=== PATIENT | male | born 1975 | race Caucasian/White ===

== ENCOUNTER 2016-09-01 08:47 | Emergency (ER) | payer MEDICAID ==
[2013-12-08 15:12] VITALS: BMI 33.4
[~2016-09-01 08:47] MED LIST: ATIVAN1 MG PO; ATIVAN2 MG PO; CIPRO500 MG PO; COMBIVENT RESPIM4 GM INH; CYCLOBENZAPRINE5 MG PO; FLAGYL250 MG PO; HYDROCHLOROTH12.5 M1 PO; IPRAT-ALBUT 0.5-3 ML NEB; LEVAQUIN500 MG PO; LISINOPRIL10 MG PO; NORCO 10/325 TA1 TA1 PO; NORCO 5/325 TAB1 TA1 PO; PAXIL20 MG PO; PERCOCET 10/3251 TA1 PO; PLAVIX75 MG PO; PRILOSEC20 MG PO; SINGULAIR10 MG PO; SYMBICORT 16010.2 GM; VALIUM10 MG PO; VENTOLIN HFA18 GM IH; VENTOLIN HFA18 GM INH; VICODIN 5/500 T1 TAB PO
== END 2016-09-01 11:22 | disposition home or self-care (01) ==
LOC: D.ER 08:47
DX: J06.9 Acute upper respiratory infection, unspecified (principal); H69.93 Unspecified Eustachian tube disorder, bilateral; J30.9 Allergic rhinitis, unspecified; I50.9 Heart failure, unspecified; I10 Essential (primary) hypertension; F41.9 Anxiety disorder, unspecified; F17.200 Nicotine dependence, unspecified, uncomplicated

== ENCOUNTER 2016-11-09 18:27 | Emergency (ER) | payer MEDICAID ==
[2013-12-08 15:12] VITALS: BMI 33.4
== END 2016-11-09 19:00 | disposition left against medical advice (07) ==
LOC: D.ER 18:27
DX: R60.9 Edema, unspecified (principal); H92.02 Otalgia, left ear

== ENCOUNTER 2016-11-09 20:12 | Emergency (ER) | payer MEDICAID ==
[2013-12-08 15:12] VITALS: BMI 33.4
== END 2016-11-09 20:46 | disposition home or self-care (01) ==
LOC: D.ER 20:12
DX: H66.92 Otitis media, unspecified, left ear (principal); I50.9 Heart failure, unspecified; F17.200 Nicotine dependence, unspecified, uncomplicated; R51 Headache

== ENCOUNTER 2016-11-12 17:27 | Emergency (ER) | payer MEDICAID ==
[2013-12-08 15:12] VITALS: BMI 33.4
[2016-11-12 18:46] LABS: BASOPHILS 0.6 % (0-2); EOSINOPHILS 2.2 % (0-7); HEMATOCRIT 43.5 % (42.0-54.0); IMMATURE GRANULOCYTES 3.4 % (0-5); LYMPHOCYTES 34.7 % (15-50); MCH 31.9 pg (26.0-34.0); MCHC 34.5 g/dL (31.0-37.0); MCV 92.6 fL (80.0-100.0); MONOCYTES 7.4 % (2-11); NEUTROPHILS 51.7 % (40-80); PLATELET COUNT 298 10x3/uL (130-400); RDW 13.1 % (11.5-14.5); WBC 10.9 10x3/uL (4.8-10.8)
[2016-11-12 18:57] LABS: CALC OSMOLALITY 279 mosm/kg (275-300); CALCIUM 8.9 mg/dL (8.5-10.1); CARBON DIOXIDE 26.7 mmol/L (21.0-32.0); CHLORIDE - SERUM 104 mmol/L (98-107); CREATININE - SERUM 0.9 mg/dL (0.6-1.3); POTASSIUM - SERUM 3.7 mmol/L (3.5-5.1); SODIUM 139 mmol/L (136-145); UREA NITROGEN 12 mg/dL (7-18); eGFR NON AFRICAN AMERICAN > 90 mL/min (90-120)
[2016-11-12 18:59] LABS: GLUCOSE 131 mg/dL (74-106)
== END 2016-11-12 19:40 | disposition home or self-care (01) ==
LOC: D.ER 17:27
PROVIDERS: Nurse Practitioner Acute Care
DX: H66.92 Otitis media, unspecified, left ear (principal); I50.9 Heart failure, unspecified; I10 Essential (primary) hypertension; F17.200 Nicotine dependence, unspecified, uncomplicated

== ENCOUNTER 2016-11-29 13:01 | Emergency (ER) | payer MEDICAID ==
[2013-12-08 15:12] VITALS: BMI 33.4
[2016-11-29 14:03] LABS: BASOPHILS 0.4 % (0-2); EOSINOPHILS 3.9 % (0-7); HEMATOCRIT 42.7 % (42.0-54.0); HEMOGLOBIN 15.1 g/dL (13.5-17.5); IMMATURE GRANULOCYTES 0.7 % (0-5); MCH 32.9 pg (26.0-34.0); MCHC 35.4 g/dL (31.0-37.0); MEAN PLATELET VOLUME 10.1 fL (7.4-10.4); MONOCYTES 7.8 % (2-11); NEUTROPHILS 51.2 % (40-80); PLATELET COUNT 302 10x3/uL (130-400); RBC 4.59 10x6/uL (4.20-6.10); RDW 12.9 % (11.5-14.5)
[2016-11-29 14:10] LABS: ALBUMIN 4.4 g/dL (3.4-5.0); ANION GAP 13.6 mmol/L (8-16); BILIRUBIN - TOTAL 1.97 mg/dL (0.2-1.3); CALCIUM 9.7 mg/dL (8.5-10.1); CARBON DIOXIDE 29.3 mmol/L (21.0-32.0); CREATININE - SERUM 1.4 mg/dL (0.6-1.3); POTASSIUM - SERUM 3.9 mmol/L (3.5-5.1); PROTEIN - SERUM 8.2 g/dL (6.4-8.2)
[2016-11-29 14:39] LABS: APPEARANCE CLEAR (CLEAR); BILIRUBIN NEGATIVE (NEGATIVE); COLOR DK YELLOW (YELLOW); GLUCOSE NEGATIVE (NEGATIVE); KETONE NEGATIVE (NEGATIVE); LEUKOCYTE ESTERASE NEGATIVE (NEGATIVE); NITRITE NEGATIVE (NEGATIVE); PROTEIN NEGATIVE (NEGATIVE); SPECIFIC GRAVITY 1.025 (1.005-1.020)
[2016-11-29 15:57] LABS: AMYLASE - SERUM 89 U/L (25-115); LIPASE 246 U/L (73-393)
[2016-11-29 16:00] LABS: UDS - AMPHET NEGATIVE QUAL (NEGATIVE); UDS - BARB NEGATIVE QUAL (NEGATIVE); UDS - BENZO NEGATIVE QUAL (NEGATIVE); UDS - COCAINE NEGATIVE QUAL (NEGATIVE); UDS - METH NEGATIVE QUAL (NEGATIVE); UDS - OPIATE NEGATIVE QUAL (NEGATIVE); UDS - PCP NEGATIVE QUAL (NEGATIVE); UDS - THC POSITIVE QUAL (NEGATIVE)
[2016-11-29 16:56] LABS: CKMB 0.8 U/L (0.0-3.6); CREATINE KINASE 95 UL (21-232)
[2016-11-29 16:57] LABS: TROPONIN-I < 0.017 ng/mL (0.000-0.060)
== END 2016-11-29 18:33 | disposition home or self-care (01) ==
LOC: D.ER 13:01
PROVIDERS: Emergency Medicine; Nurse Practitioner Family
DX: R10.9 Unspecified abdominal pain (principal); K21.9 Gastro-esophageal reflux disease without esophagitis; R19.7 Diarrhea, unspecified; Z87.19 Personal history of other diseases of the digestive system; I50.9 Heart failure, unspecified; I10 Essential (primary) hypertension

== ENCOUNTER 2017-03-31 03:13 | Emergency (ER) | payer MEDICAID ==
[2013-12-08 15:12] VITALS: BMI 33.4
[2017-03-31 04:21] LABS: BASOPHILS 0.1 % (0-2); EOSINOPHILS 1.5 % (0-7); HEMATOCRIT 41.1 % (42.0-54.0); HEMOGLOBIN 14.6 g/dL (13.5-17.5); IMMATURE GRANULOCYTES 0.5 % (0-5); MCH 32.8 pg (26.0-34.0); MCHC 35.5 g/dL (31.0-37.0); MCV 92.4 fL (80.0-100.0); MEAN PLATELET VOLUME 10.4 fL (7.4-10.4); MONOCYTES 11.1 % (2-11); NEUTROPHILS 72.8 % (40-80); PLATELET COUNT 232 10x3/uL (130-400); RBC 4.45 10x6/uL (4.20-6.10); RDW 12.8 % (11.5-14.5); WBC 9.3 10x3/uL (4.8-10.8)
[2017-03-31 04:29] LABS: ALKALINE PHOSPHATASE 54 U/L (46-116); BILIRUBIN - TOTAL 0.91 mg/dL (0.2-1.3); CALC OSMOLALITY 270 mosm/kg (275-300); CALCIUM 8.5 mg/dL (8.5-10.1); CARBON DIOXIDE 20.1 mmol/L (21.0-32.0); CHLORIDE - SERUM 99 mmol/L (98-107); GLUCOSE 122 mg/dL (74-106); POTASSIUM - SERUM 3.9 mmol/L (3.5-5.1); SODIUM 134 mmol/L (136-145); UREA NITROGEN 17 mg/dL (7-18); eGFR NON AFRICAN AMERICAN 87 mL/min (90-120)
[2017-03-31 04:33] LABS: ALT (SGPT) 39 U/L (10-68); PROTEIN - SERUM 7.4 g/dL (6.4-8.2)
[2017-03-31 05:12] LABS: APPEARANCE CLEAR (CLEAR); COLOR YELLOW (YELLOW); SPECIFIC GRAVITY 1.015 (1.005-1.020)
[2017-03-31 05:13] LABS: BILIRUBIN NEGATIVE (NEGATIVE); GLUCOSE NEGATIVE (NEGATIVE); KETONE NEGATIVE (NEGATIVE); NITRITE NEGATIVE (NEGATIVE); PROTEIN NEGATIVE (NEGATIVE); UROBILINOGEN NORMAL (NORMAL)
[2017-03-31 05:19] LABS: UDS - AMPHET NEGATIVE QUAL (NEGATIVE); UDS - BARB NEGATIVE QUAL (NEGATIVE); UDS - BENZO NEGATIVE QUAL (NEGATIVE); UDS - COCAINE NEGATIVE QUAL (NEGATIVE); UDS - OPIATE POSITIVE QUAL (NEGATIVE); UDS - PCP NEGATIVE QUAL (NEGATIVE); UDS - THC POSITIVE QUAL (NEGATIVE)
== END 2017-03-31 05:54 | disposition home or self-care (01) ==
LOC: D.ER 03:13
PROVIDERS: Family Medicine
DX: J11.1 Influenza due to unidentified influenza virus with other respiratory manifestations (principal); I50.9 Heart failure, unspecified; I10 Essential (primary) hypertension

== ENCOUNTER 2017-04-18 06:53 | Emergency (ER) | payer MEDICAID ==
[2013-12-08 15:12] VITALS: BMI 33.4
== END 2017-04-18 07:38 | disposition home or self-care (01) ==
LOC: D.ER 06:53
DX: K64.8 Other hemorrhoids (principal); I50.9 Heart failure, unspecified; I10 Essential (primary) hypertension; K21.9 Gastro-esophageal reflux disease without esophagitis; F17.200 Nicotine dependence, unspecified, uncomplicated

== ENCOUNTER 2017-04-25 08:45 | Emergency (ER) | payer MEDICAID ==
[2013-12-08 15:12] VITALS: BMI 33.4
== END 2017-04-25 10:01 | disposition home or self-care (01) ==
LOC: D.ER 08:45
DX: J20.9 Acute bronchitis, unspecified (principal); J02.0 Streptococcal pharyngitis; I50.9 Heart failure, unspecified; I10 Essential (primary) hypertension

== ENCOUNTER 2017-04-28 13:52 | Emergency (ER) | payer MEDICAID ==
[2013-12-08 15:12] VITALS: BMI 33.4
== END 2017-04-28 16:05 | disposition home or self-care (01) ==
LOC: D.ER 13:52
DX: J02.9 Acute pharyngitis, unspecified (principal); J11.1 Influenza due to unidentified influenza virus with other respiratory manifestations; J44.1 Chronic obstructive pulmonary disease with (acute) exacerbation; I50.9 Heart failure, unspecified; K21.9 Gastro-esophageal reflux disease without esophagitis

== ENCOUNTER 2017-05-18 19:39 | Emergency (ER) | payer MEDICAID ==
[2013-12-08 15:12] VITALS: BMI 33.4
== END 2017-05-18 21:06 | disposition home or self-care (01) ==
LOC: D.ER 19:39
DX: T25.122A Burn of first degree of left foot, initial encounter (principal); T31.0 Burns involving less than 10% of body surface; X10.2XXA Contact with fats and cooking oils, initial encounter; Y93.G3 Activity, cooking and baking; Y92.010 Kitchen of single-family (private) house as the place of occurrence of the external cause; J44.9 Chronic obstructive pulmonary disease, unspecified; I50.9 Heart failure, unspecified; K21.9 Gastro-esophageal reflux disease without esophagitis

== ENCOUNTER 2017-06-22 10:02 | Emergency (ER) | payer MEDICAID ==
[2013-12-08 15:12] VITALS: BMI 33.4
[2017-06-22 11:09] LABS: BASOPHILS 0.3 % (0-2); EOSINOPHILS 3.1 % (0-7); HEMATOCRIT 45.6 % (42.0-54.0); HEMOGLOBIN 16.1 g/dL (13.5-17.5); IMMATURE GRANULOCYTES 0.6 % (0-5); LYMPHOCYTES 33.4 % (15-50); MCH 33.3 pg (26.0-34.0); MCHC 35.3 g/dL (31.0-37.0); MCV 94.4 fL (80.0-100.0); MONOCYTES 9.3 % (2-11); NEUTROPHILS 53.3 % (40-80); RBC 4.83 10x6/uL (4.20-6.10); RDW 13.5 % (11.5-14.5)
[2017-06-22 11:13] LABS: PLATELET COUNT 291 10x3/uL (130-400)
[2017-06-22 11:22] LABS: ALBUMIN 4.2 g/dL (3.4-5.0); ALKALINE PHOSPHATASE 52 U/L (46-116); ALT (SGPT) 48 U/L (10-68); BILIRUBIN - TOTAL 0.94 mg/dL (0.2-1.3); CALC OSMOLALITY 273 mosm/kg (275-300); CALCIUM 9.3 mg/dL (8.5-10.1); CARBON DIOXIDE 24.6 mmol/L (21.0-32.0); CHLORIDE - SERUM 102 mmol/L (98-107); CREATININE - SERUM 0.8 mg/dL (0.6-1.3); GLUCOSE 97 mg/dL (74-106); PROTEIN - SERUM 8.1 g/dL (6.4-8.2); SODIUM 137 mmol/L (136-145); UREA NITROGEN 12 mg/dL (7-18); eGFR NON AFRICAN AMERICAN > 90 mL/min (90-120)
[2017-06-22 11:30] LABS: CREATINE KINASE 104 UL (21-232); PRO BNP 14 pg/mL (0-125)
[2017-06-22 11:31] LABS: TROPONIN-I < 0.017 ng/mL (0.000-0.060)
[2017-06-22 11:33] LABS: INR 1.01 (0.85-1.17); PROTIME 12.9 SECONDS (11.6-15.0)
[2017-06-22 11:35] LABS: D-DIMER-QUANTITATIVE < 0.27 ug/mLFEU (0.20-0.54)
[2017-06-22 12:01] LABS: UDS - AMPHET NEGATIVE QUAL (NEGATIVE); UDS - BARB NEGATIVE QUAL (NEGATIVE); UDS - BENZO NEGATIVE QUAL (NEGATIVE); UDS - COCAINE NEGATIVE QUAL (NEGATIVE); UDS - OPIATE NEGATIVE QUAL (NEGATIVE); UDS - PCP NEGATIVE QUAL (NEGATIVE); UDS - THC POSITIVE QUAL (NEGATIVE)
[2017-06-22 12:19] LABS: AMORPHOUS SEDIMENT <1+ /lpf (NONE SEEN); APPEARANCE HAZY (CLEAR); BACTERIA FEW /hpf (NONE SEEN); BILIRUBIN NEGATIVE (NEGATIVE); COLOR YELLOW (YELLOW); EPITHELIAL CELLS 0-5 /hpf (0-5); GLUCOSE NEGATIVE (NEGATIVE); KETONE NEGATIVE (NEGATIVE); MUCUS <1+ /lpf (NONE SEEN); NITRITE NEGATIVE (NEGATIVE); PROTEIN NEGATIVE (NEGATIVE); SPECIFIC GRAVITY 1.015 (1.005-1.020); UROBILINOGEN NORMAL (NORMAL); WHITE CELLS - URINE 0-5 /hpf (0-5)
== END 2017-06-22 13:15 | disposition home or self-care (01) ==
LOC: D.ER 10:02
PROVIDERS: Nurse Practitioner Family
DX: J45.901 Unspecified asthma with (acute) exacerbation (principal); I50.9 Heart failure, unspecified; K21.9 Gastro-esophageal reflux disease without esophagitis

== ENCOUNTER 2017-07-29 11:00 | Emergency (ER) | payer MEDICAID ==
[2013-12-08 15:12] VITALS: BMI 33.4
== END 2017-07-29 13:08 | disposition home or self-care (01) ==
LOC: D.ER 11:00
DX: S83.91XA Sprain of unspecified site of right knee, initial encounter (principal); W19.XXXA Unspecified fall, initial encounter; Y93.89 Activity, other specified; Y92.019 Unspecified place in single-family (private) house as the place of occurrence of the external cause; J45.909 Unspecified asthma, uncomplicated; I50.9 Heart failure, unspecified; J44.9 Chronic obstructive pulmonary disease, unspecified

== ENCOUNTER 2017-11-08 07:52 | Emergency (ER) | payer MEDICAID ==
[~2017-11-08] VITALS: Ht 188 cm; Wt 109.1 kg
[2017-11-08 08:02] VITALS: Ht 188 cm; Wt 109.1 kg
[2017-11-08] MEDS ORDERED: PROAIR HFA8.5 GM INH (08:26)
[2017-11-08] MEDS ORDERED: AUGMENTIN 875-11 TAB PO (08:26)
[2017-11-08] MEDS ORDERED: FLUTICASONE PRO16 GM NASAL (08:26)
[2017-11-08 08:54] VITALS: BP 134/79
== END 2017-11-08 08:54 | disposition home or self-care (01) ==
LOC: D.ER 07:52
DX: J01.90 Acute sinusitis, unspecified (principal); J45.909 Unspecified asthma, uncomplicated; F17.200 Nicotine dependence, unspecified, uncomplicated; I10 Essential (primary) hypertension

== ENCOUNTER 2017-12-07 16:36 | Emergency (ER) | payer MEDICAID ==
[~2017-12-07] VITALS: Ht 188 cm; Wt 113.2 kg
[~2017-12-07 16:36] MED LIST changes: +AUGMENTIN 875-11 TAB PO; +FLUTICASONE PRO16 GM NASAL; +PROAIR HFA8.5 GM INH
[2017-12-07 16:43] VITALS: Ht 188 cm; Wt 113.2 kg
[2017-12-07] MEDS ORDERED: CYCLOBENZAPRINE5 MG PO (20:24)
[2017-12-07] MEDS ORDERED: NORCO 7.5/325 T1 TA1 PO (20:24)
[2017-12-07] MEDS ORDERED: NAPROSYN500 MG PO (20:24)
[2017-12-07 20:33] VITALS: BP 149/84
== END 2017-12-07 20:33 | disposition home or self-care (01) ==
LOC: D.ER 16:36
DX: S41.112A Laceration without foreign body of left upper arm, initial encounter (principal); V86.59XA Driver of other special all-terrain or other off-road motor vehicle injured in nontraffic accident, initial encounter; Y93.89 Activity, other specified; Y92.89 Other specified places as the place of occurrence of the external cause; M54.5 Low back pain; M25.512 Pain in left shoulder; I10 Essential (primary) hypertension; F17.200 Nicotine dependence, unspecified, uncomplicated

== ENCOUNTER 2018-02-27 11:42 | Emergency (ER) | payer MEDICAID ==
[~2018-02-27] VITALS: Ht 188 cm; Wt 113.6 kg
[~2018-02-27 11:42] MED LIST changes: +NAPROSYN500 MG PO; +NORCO 7.5/325 T1 TA1 PO
[2018-02-27 11:56] VITALS: Ht 188 cm; Wt 113.6 kg
[2018-02-27 12:29] LABS: APPEARANCE CLEAR (CLEAR); BILIRUBIN NEGATIVE (NEGATIVE); COLOR YELLOW (YELLOW); GLUCOSE NEGATIVE (NEGATIVE); KETONE NEGATIVE (NEGATIVE); NITRITE NEGATIVE (NEGATIVE); PROTEIN NEGATIVE (NEGATIVE); UROBILINOGEN NORMAL (NORMAL)
[2018-02-27 12:30] LABS: BACTERIA FEW /hpf (NONE SEEN); EPITHELIAL CELLS RARE /hpf (0-5); RED CELLS - URINE RARE /hpf (0-5); UDS - AMPHET NEGATIVE QUAL (NEGATIVE); UDS - BARB NEGATIVE QUAL (NEGATIVE); UDS - BENZO NEGATIVE QUAL (NEGATIVE); UDS - COCAINE NEGATIVE QUAL (NEGATIVE); UDS - OPIATE NEGATIVE QUAL (NEGATIVE); UDS - PCP NEGATIVE QUAL (NEGATIVE); UDS - THC POSITIVE QUAL (NEGATIVE)
[2018-02-27 13:13] LABS: BASOPHILS 0.3 % (0-2); EOSINOPHILS 2.3 % (0-7); HEMATOCRIT 40.4 % (42.0-54.0); HEMOGLOBIN 13.9 g/dL (13.5-17.5); IMMATURE GRANULOCYTES 0.9 % (0-5); LYMPHOCYTES 31.9 % (15-50); MCH 32.4 pg (26.0-34.0); MCHC 34.4 g/dL (31.0-37.0); MCV 94.2 fL (80.0-100.0); MEAN PLATELET VOLUME 9.7 fL (7.4-10.4); MONOCYTES 7.5 % (2-11); NEUTROPHILS 57.1 % (40-80); PLATELET COUNT 310 10x3/uL (130-400); RBC 4.29 10x6/uL (4.20-6.10); RDW 12.6 % (11.5-14.5); WBC 6.9 10x3/uL (4.8-10.8)
[2018-02-27 13:30] LABS: ALBUMIN 3.5 g/dL (3.4-5.0); ALKALINE PHOSPHATASE 54 U/L (46-116); ALT (SGPT) 49 U/L (10-68); CALC OSMOLALITY 276 mosm/kg (275-300); CALCIUM 8.6 mg/dL (8.5-10.1); CARBON DIOXIDE 23.9 mmol/L (21.0-32.0); CHLORIDE - SERUM 105 mmol/L (98-107); CREATININE - SERUM 0.9 mg/dL (0.6-1.3); GLUCOSE 109 mg/dL (74-106); MAGNESIUM - SERUM 2.1 mg/dL (1.8-2.4); POTASSIUM - SERUM 3.9 mmol/L (3.5-5.1); PROTEIN - SERUM 7.3 g/dL (6.4-8.2); SODIUM 139 mmol/L (136-145); UREA NITROGEN 8 mg/dL (7-18); eGFR NON AFRICAN AMERICAN > 90 mL/min (90-120)
[2018-02-27 21:08] VITALS: BP 141/89
== END 2018-02-27 21:09 ==
LOC: D.ER 11:42
PROVIDERS: Family Medicine
DX: T14.91XA Suicide attempt, initial encounter (principal); X78.9XXA Intentional self-harm by unspecified sharp object, initial encounter; Y93.89 Activity, other specified; Y92.019 Unspecified place in single-family (private) house as the place of occurrence of the external cause; I10 Essential (primary) hypertension; F17.200 Nicotine dependence, unspecified, uncomplicated

== ENCOUNTER 2018-03-14 04:25 | Emergency (ER) | payer MEDICAID ==
[~2018-03-14] VITALS: Ht 188 cm; Wt 112.7 kg
[2018-03-14 04:26] VITALS: Ht 188 cm; Wt 112.7 kg
[2018-03-14] MEDS ORDERED: IBUPROFEN800 MG PO (05:46)
[2018-03-14] MEDS ORDERED: CYCLOBENZAPRINE10 MG PO (05:46)
[2018-03-14] MEDS ORDERED: ACETAMINOPHEN500 M1 PO (05:46)
[2018-03-14 05:59] VITALS: BP 134/82
== END 2018-03-14 06:00 | disposition home or self-care (01) ==
LOC: D.ER 04:25
DX: S40.012A Contusion of left shoulder, initial encounter (principal); W20.8XXA Other cause of strike by thrown, projected or falling object, initial encounter; Y93.89 Activity, other specified; Y92.019 Unspecified place in single-family (private) house as the place of occurrence of the external cause; I10 Essential (primary) hypertension; F17.200 Nicotine dependence, unspecified, uncomplicated

== ENCOUNTER 2018-04-28 09:55 | Emergency (ER) | payer MEDICAID ==
[~2018-04-28] VITALS: Ht 188 cm; Wt 111.8 kg
[~2018-04-28 09:55] MED LIST changes: +ACETAMINOPHEN500 M1 PO; +CYCLOBENZAPRINE10 MG PO; +IBUPROFEN800 MG PO
[2018-04-28 09:58] VITALS: Ht 188 cm; Wt 111.8 kg
[2018-04-28 10:27] LABS: BASOPHILS 0.5 % (0-2); EOSINOPHILS 2.2 % (0-7); HEMATOCRIT 44.3 % (42.0-54.0); HEMOGLOBIN 15.7 g/dL (13.5-17.5); IMMATURE GRANULOCYTES 1.2 % (0-5); LYMPHOCYTES 38.4 % (15-50); MCH 32.4 pg (26.0-34.0); MCHC 35.4 g/dL (31.0-37.0); MCV 91.3 fL (80.0-100.0); MEAN PLATELET VOLUME 9.9 fL (7.4-10.4); MONOCYTES 7.8 % (2-11); NEUTROPHILS 49.9 % (40-80); PLATELET COUNT 296 10x3/uL (130-400); RBC 4.85 10x6/uL (4.20-6.10); RDW 13.2 % (11.5-14.5); WBC 9.7 10x3/uL (4.8-10.8)
[2018-04-28 10:40] LABS: ALKALINE PHOSPHATASE 66 U/L (46-116); ALT (SGPT) 50 U/L (10-68); BILIRUBIN - TOTAL 0.63 mg/dL (0.2-1.3); CALC OSMOLALITY 270 mosm/kg (275-300); CALCIUM 9.1 mg/dL (8.5-10.1); CARBON DIOXIDE 23.7 mmol/L (21.0-32.0); CHLORIDE - SERUM 101 mmol/L (98-107); CREATININE - SERUM 0.8 mg/dL (0.6-1.3); GLUCOSE 90 mg/dL (74-106); POTASSIUM - SERUM 4.3 mmol/L (3.5-5.1); PROTEIN - SERUM 8.5 g/dL (6.4-8.2); SODIUM 136 mmol/L (136-145); UREA NITROGEN 9 mg/dL (7-18); eGFR NON AFRICAN AMERICAN > 90 mL/min (90-120)
[2018-04-28] MEDS ORDERED: TESSALON PERLE100 MG PO (10:54)
[2018-04-28] MEDS ORDERED: ZPAK PO (10:54)
[2018-04-28 11:11] VITALS: BP 140/90
[2018-05-03 19:10] LABS: AEROBE ID Final report (())
== END 2018-04-28 11:12 | disposition home or self-care (01) ==
LOC: D.ER 09:55
PROVIDERS: Emergency Medicine
DX: J40 Bronchitis, not specified as acute or chronic (principal); J01.90 Acute sinusitis, unspecified; R09.89 Other specified symptoms and signs involving the circulatory and respiratory systems; J02.9 Acute pharyngitis, unspecified; F17.200 Nicotine dependence, unspecified, uncomplicated

== ENCOUNTER 2018-06-11 14:30 | Emergency (ER) | payer MEDICAID ==
[~2018-06-11] VITALS: Ht 188 cm; Wt 113.6 kg
[~2018-06-11 14:30] MED LIST changes: +TESSALON PERLE100 MG PO; +ZPAK PO
[2018-06-11 14:43] VITALS: Ht 188 cm; Wt 113.6 kg
[2018-06-11 16:13] LABS: BASOPHILS 0.2 % (0-2); EOSINOPHILS 3.7 % (0-7); HEMATOCRIT 42.7 % (42.0-54.0); HEMOGLOBIN 14.9 g/dL (13.5-17.5); IMMATURE GRANULOCYTES 0.9 % (0-5); LYMPHOCYTES 36.9 % (15-50); MCH 32.3 pg (26.0-34.0); MCHC 34.9 g/dL (31.0-37.0); MCV 92.6 fL (80.0-100.0); MEAN PLATELET VOLUME 9.7 fL (7.4-10.4); MONOCYTES 6.8 % (2-11); NEUTROPHILS 51.5 % (40-80); PLATELET COUNT 330 10x3/uL (130-400); RBC 4.61 10x6/uL (4.20-6.10); RDW 13.6 % (11.5-14.5); WBC 8.8 10x3/uL (4.8-10.8)
[2018-06-11] MEDS ORDERED: PHENERGAN DM SYR5 ML PO (16:41)
[2018-06-11] MEDS ORDERED: TAMIFLU75 MG PO (16:41)
[2018-06-11] MEDS ORDERED: OMNICEF300 MG PO (16:41)
[2018-06-11 17:24] VITALS: BP 110/85
== END 2018-06-11 17:25 | disposition home or self-care (01) ==
LOC: D.ER 14:30
PROVIDERS: Family Medicine
DX: H66.92 Otitis media, unspecified, left ear (principal)

== ENCOUNTER 2019-03-17 12:40 | Emergency (ER) | payer MEDICAID ==
[~2019-03-17] VITALS: Ht 188 cm; Wt 95.5 kg
[~2019-03-17 12:40] MED LIST changes: +OMNICEF300 MG PO; +PHENERGAN DM SYR5 ML PO; +TAMIFLU75 MG PO
[2019-03-17 12:45] VITALS: BP 136/73; Ht 188 cm; Wt 95.5 kg
== END 2019-03-17 16:01 | disposition home or self-care (01) ==
LOC: D.ER 12:40
DX: M79.671 Pain in right foot (principal); F32.9 Major depressive disorder, single episode, unspecified; I10 Essential (primary) hypertension; J44.9 Chronic obstructive pulmonary disease, unspecified

== ENCOUNTER 2019-03-25 05:42 | Emergency (ER) | payer MEDICAID ==
[~2019-03-25] VITALS: Ht 188 cm; Wt 100.0 kg
[2019-03-25 05:45] VITALS: Ht 188 cm; Wt 100.0 kg
[2019-03-25 06:34] LABS: APPEARANCE CLEAR (CLEAR); BILIRUBIN NEGATIVE (NEGATIVE); COLOR YELLOW (YELLOW); GLUCOSE NEGATIVE (NEGATIVE); KETONE NEGATIVE (NEGATIVE); NITRITE NEGATIVE (NEGATIVE); PROTEIN NEGATIVE (NEGATIVE)
[2019-03-25 06:38] LABS: UDS - AMPHET POSITIVE QUAL (NEGATIVE); UDS - BARB NEGATIVE QUAL (NEGATIVE); UDS - BENZO NEGATIVE QUAL (NEGATIVE); UDS - COCAINE NEGATIVE QUAL (NEGATIVE); UDS - OPIATE NEGATIVE QUAL (NEGATIVE); UDS - PCP NEGATIVE QUAL (NEGATIVE); UDS - THC POSITIVE QUAL (NEGATIVE)
[2019-03-25 06:39] LABS: BASOPHILS 0.2 % (0-2); EOSINOPHILS 0.5 % (0-7); HEMATOCRIT 44.3 % (42.0-54.0); HEMOGLOBIN 15.1 g/dL (13.5-17.5); IMMATURE GRANULOCYTES 0.2 % (0-5); LYMPHOCYTES 24.7 % (15-50); MCH 30.2 pg (26.0-34.0); MCHC 34.1 g/dL (31.0-37.0); MCV 88.6 fL (80.0-100.0); MEAN PLATELET VOLUME 9.2 fL (7.4-10.4); MONOCYTES 10.1 % (2-11); NEUTROPHILS 64.3 % (40-80); PLATELET COUNT 293 10x3/uL (130-400); WBC 6.1 10x3/uL (4.8-10.8)
[2019-03-25 06:50] LABS: APTT 43.3 SECONDS (22.8-39.4)
[2019-03-25 06:52] LABS: CALC OSMOLALITY 277 mosm/kg (275-300); CALCIUM 9.3 mg/dL (8.5-10.1); CARBON DIOXIDE 27.5 mmol/L (21.0-32.0); CHLORIDE - SERUM 103 mmol/L (98-107); CREATININE - SERUM 0.9 mg/dL (0.6-1.3); GLUCOSE 98 mg/dL (74-106); POTASSIUM - SERUM 3.9 mmol/L (3.5-5.1); SODIUM 139 mmol/L (136-145); UREA NITROGEN 13 mg/dL (7-18); eGFR NON AFRICAN AMERICAN > 90 mL/min (90-120)
[2019-03-25 07:08] LABS: ALKALINE PHOSPHATASE 68 U/L (46-116); ALT (SGPT) 34 U/L (10-68); CKMB 1.9 U/L (0.0-3.6); CREATINE KINASE 139 UL (21-232); MAGNESIUM - SERUM 2.1 mg/dL (1.8-2.4); PROTEIN - SERUM 8.4 g/dL (6.4-8.2)
[2019-03-25 07:09] LABS: TROPONIN-I < 0.017 ng/mL (0.000-0.060)
[2019-03-25 07:15] LABS: INR 1.05 (0.85-1.17); PROTIME 13.2 SECONDS (11.6-15.0)
[2019-03-25 07:30] VITALS: BP 142/94
== END 2019-03-25 07:30 | disposition home or self-care (01) ==
LOC: D.ER 05:42
PROVIDERS: Family Medicine
DX: F15.10 Other stimulant abuse, uncomplicated (principal); F16.99 Hallucinogen use, unspecified with unspecified hallucinogen-induced disorder; F12.10 Cannabis abuse, uncomplicated; I10 Essential (primary) hypertension; J44.9 Chronic obstructive pulmonary disease, unspecified; R56.9 Unspecified convulsions

== ENCOUNTER 2019-04-06 03:56 | Emergency (ER) | payer MEDICAID ==
[~2019-04-06] VITALS: Ht 188 cm; Wt 95.5 kg
[2019-04-06 04:12] VITALS: Ht 188 cm; Wt 95.5 kg
[2019-04-06 04:48] LABS: BASOPHILS 0.2 % (0-2); EOSINOPHILS 1.3 % (0-7); HEMATOCRIT 42.3 % (42.0-54.0); HEMOGLOBIN 14.7 g/dL (13.5-17.5); IMMATURE GRANULOCYTES 0.5 % (0-5); LYMPHOCYTES 28.8 % (15-50); MCH 30.6 pg (26.0-34.0); MCHC 34.8 g/dL (31.0-37.0); MCV 88.1 fL (80.0-100.0); MEAN PLATELET VOLUME 9.4 fL (7.4-10.4); MONOCYTES 10.7 % (2-11); NEUTROPHILS 58.5 % (40-80); PLATELET COUNT 266 10x3/uL (130-400); RDW 13.6 % (11.5-14.5); WBC 10.9 10x3/uL (4.8-10.8)
[2019-04-06 05:01] LABS: CALC OSMOLALITY 279 mosm/kg (275-300); CALCIUM 9.1 mg/dL (8.5-10.1); CARBON DIOXIDE 28.6 mmol/L (21.0-32.0); CHLORIDE - SERUM 99 mmol/L (98-107); CREATININE - SERUM 0.9 mg/dL (0.6-1.3); GLUCOSE 134 mg/dL (74-106); SODIUM 137 mmol/L (136-145); UREA NITROGEN 24 mg/dL (7-18); eGFR NON AFRICAN AMERICAN > 90 mL/min (90-120)
[2019-04-06 05:05] LABS: ALBUMIN 4.2 g/dL (3.4-5.0); ALKALINE PHOSPHATASE 82 U/L (46-116); ALT (SGPT) 57 U/L (10-68); MAGNESIUM - SERUM 2.6 mg/dL (1.8-2.4); PROTEIN - SERUM 8.6 g/dL (6.4-8.2)
[2019-04-06 05:30] LABS: APPEARANCE CLEAR (CLEAR); BILIRUBIN NEGATIVE (NEGATIVE); COLOR YELLOW (YELLOW); GLUCOSE NEGATIVE (NEGATIVE); KETONE NEGATIVE (NEGATIVE); NITRITE NEGATIVE (NEGATIVE); PROTEIN NEGATIVE (NEGATIVE); UROBILINOGEN NORMAL (NORMAL)
[2019-04-06 05:43] LABS: UDS - AMPHET POSITIVE QUAL (NEGATIVE); UDS - BARB NEGATIVE QUAL (NEGATIVE); UDS - BENZO NEGATIVE QUAL (NEGATIVE); UDS - COCAINE NEGATIVE QUAL (NEGATIVE); UDS - OPIATE NEGATIVE QUAL (NEGATIVE); UDS - PCP NEGATIVE QUAL (NEGATIVE); UDS - THC POSITIVE QUAL (NEGATIVE)
--- NOTE | 2019-04-06 05:46 | NUR ---
DR ROBERTSON NOTIFIED AND SITTER ORDERED. SITTER AT BEDSIDE. NOTIFIED CHARGE NURSE AND ATTENDING IN REGARDS TO ASSESSMENT FINDINGS. RESOURCES GIVEN TO PT AND SAFETY PLAN INITIATED.
[2019-04-06] MEDS ORDERED: KLONOPIN1 MG PO (09:09)
[2019-04-06 09:46] VITALS: BP 144/64
== END 2019-04-06 09:47 | disposition home or self-care (01) ==
LOC: D.ER 03:56
PROVIDERS: Family Medicine
DX: R45.851 Suicidal ideations (principal); F15.11 Other stimulant abuse, in remission; I10 Essential (primary) hypertension; H44.9 Unspecified disorder of globe